=== PATIENT | female | born 1985 | race Caucasian/White ===

== ENCOUNTER 2024-02-07 16:21 | Emergency (ER) | payer OTHER ==
[2024-02-07 16:45] VITALS: BP 153/85; PULSE 101; RESP 20; TEMP 98.6
--- NOTE | 2024-02-07 16:51 | ED ---
Lower Extremity Injury HPI - General Source: patient, RN notes reviewed Mode of arrival: wheelchair Limitations: no limitations <Bere Cervantes - Last Filed: 02/07/24 16:50> <Willie Cardenas - Last Filed: 02/08/24 18:09> - General Chief Complaint: Extremity Injury, Lower Stated Complaint: fall Time Seen by Provider: 02/07/24 16:50 - History of Present Illness Initial Comments: Quick note: 38-year-old female presented to the ER with a chief complaint of a fall. Patient states she slipped walking from wet carpet to a hardwood floor. She denies any head injury or loss of consciousness. Denies any dizziness, lightheadedness, chest pain or shortness of breath prior to fall. (Bere Cervantes) 38-year-old female presenting with chief complaint of left knee pain. Patient states that she was cleaning and she stepped from the back carpet onto hard surface. She slipped and landed onto her left knee. States that she has had previous surgery and issues with her left knee. No head injury or loss of consciousness or use of blood thinners. No numbness or tingling. Pain worse with range of motion or weightbearing (Willie Cardenas) - Related Data Previous Rx's Medication Instructions Recorded HYDROcodone/APAP 7.5-325MG [[place] 1 tab PO Q6HR PRN 3 Days #12 tab 02/07/24 7.5-325] Allergies Allergy/AdvReac Type Severity Reaction Status Date / Time No Known Allergies Allergy Verified 02/07/24 16:45 Review of Systems ROS Other: All systems not noted in ROS Statement are negative. <Bree Cervantes - Last Filed: 02/07/24 16:50> ROS Other: All systems not noted in ROS Statement are negative. <Willie Cardenas - Last Filed: 02/08/24 18:09> ROS Statement: Those systems with pertinent positive or pertinent negative responses have been documented in the HPI. Past Medical History Past Medical History: Diabetes Mellitus Additional Past Medical History / Comment(s): bacterial Meningitis when she was an . History of Any Multi-Drug Resistant Organisms: None Reported Past Surgical History: Orthopedic Surgery, Tonsillectomy Additional Past Surgical History / Comment(s): left knee Past Psychological History: No Psychological Hx Reported Smoking Status: Never smoker Past Alcohol Use History: None Reported Past Drug Use History: None Reported <Bere Cervantes - Last Filed: 02/07/24 16:50> General Exam Limitations: no limitations <Bere Cervantes - Last Filed: 02/07/24 16:50> Limitations: no limitations General appearance: alert, in no apparent distress Head exam: Present: atraumatic, normocephalic Eye exam: Present: normal appearance, EOMI Neck exam: Present: normal inspection. Absent: meningismus Respiratory exam: Absent: respiratory distress Left Knee exam: Present: tenderness, swelling. Absent: full ROM Neurovascular tendon exam: Present: no vascular compromise Neurological exam: Present: alert, oriented X3 Psychiatric exam: Present: normal affect, normal mood Skin exam: Present: normal color <Willie Cardenas - Last Filed: 02/08/24 18:09> - General Exam Comments Initial Comments: Visual Physical Exam Vital signs reviewed General: Well-appearing, nontoxic, no acute distress. Head: Normocephalic, atraumatic Eyes: PERRLA, EOMI ENT: Airway patent Chest: Nonlabored breathing Skin: No visual rash, normal skin tone Neuro: Alert and oriented 3 Musculoskeletal: No gross abnormalities (Bere Cervantes) Course Vital Signs 02/07/24 16:40 Temperature 98.6 F Pulse Rate 101 H Respiratory 20 Rate Blood Pressure 153/85 O2 Sat by Pulse 95 Oximetry Medical Decision Making <Bere Cervantes - Last Filed: 02/07/24 16:50> <Willie Cardenas - Last Filed: 02/08/24 18:09> - Medical Decision Making I performed the quick note portion of this chart. Electronically signed by Bere Cervantes PA-C (Bere Cervantes) Was pt. sent in by a medical professional or institution ([facility], ENTERPRISE ANALYST, urgent care, hospital, or fdc...) When possible be specific @ -No Did you speak to anyone other than the patient for history (EMS, parent, family, police, friend...)? What history was obtained from this source @ -No Did you review nursing and triage notes (agree or disagree)? Why? @ -I reviewed and agree with nursing and triage notes Were old charts reviewed (outside hosp., previous admission, EMS record, old EKG, old radiological studies, urgent care reports/EKG's, fdc records)? Report findings @ -No old charts were reviewed Differential Diagnosis (chest pain, altered mental status, abdominal pain women, abdominal pain men, vaginal bleeding, weakness, fever, dyspnea, syncope, headache, dizziness, GI bleed, back pain, seizure, CVA, palpatations, mental health, musculoskeletal)? @ -Differential Musculoskeletal Muscular strain, contusion, ligament sprain, fracture, arthritis, septic arthritis, bursitis, cellulitis, muscle spasm, nerve compression, DVT, arterial occlusion, herpes zoster, electrolyte abnormality, tumor.... This is not meant to be in all inclusive list EKG interpreted by me (3pts min.). @ -As above X-rays interpreted by me (1pt min.). @ -X-ray shows moderate to advanced tricompartmental osteoarthrosis, out of proportion to the patient's age. Correlate for any known diagnosis. No acute osseous abnormality seen. Consider orthopedic rheumatology referral CT interpreted by me (1pt min.). @ -None done U/S interpreted by me (1pt. min.). @ -None done What testing was considered but not performed or refused? (CT, X-rays, U/S, labs)? Why? @ -None What meds were considered but not given or refused? Why? @ -None Did you discuss the management of the patient with other professionals (professionals i.e. , PA, ENTERPRISE ANALYST, lab, RT, psych nurse, social work case manager, depot agent, teacher, highway patrol officer, social work case manager)? Give summary @ -No Was smoking cessation discussed for >3mins.? @ -No Was critical care preformed (if so, how long)? @ -No Were there social determinants of health that impacted care today? How? (Homelessness, low income, unemployed, alcoholism, drug addiction, transportation, low edu. Level, literacy, decrease access to med. care, [facility], rehab)? @ -No Was there de-escalation of care discussed even if they declined (Discuss DNR or withdrawal of care, Hospice)? DNR status @ -No What co-morbidities impacted this encounter? (DM, HTN, Smoking, COPD, CAD, Cancer, CVA, ARF, Chemo, Hep., AIDS, mental health diagnosis, sleep apnea, morbid obesity)? @ -None Was patient admitted / discharged? Hospital course, mention meds given and route, prescriptions, significant lab abnormalities, going to OR and other pertinent info. @ -38-year-old female presenting chief complaint of left knee pain after falling onto the knee today. History of previous surgeries and issues with this knee. X-ray negative for fracture or dislocation, however there are degenerative changes out of proportion to the patient's age. Patient is provided with crutches and will follow-up with orthopedics, referral is provided. Discharged home. Follow-up with PCP. Report back to ER with any new or worsening symptoms. Discussed return parameters and answered all questions. Patient conveyed verbal understanding and agreed to the plan. I discussed this case in detail with my attending Dr. Ibarra Undiagnosed new problem with uncertain prognosis? @ -No Drug Therapy requiring intensive monitoring for toxicity (Heparin, Nitro, Insulin, Cardizem)? @ -No Were any procedures done? @ -No Diagnosis/symptom? @ -Knee sprain Acute, or Chronic, or Acute on Chronic? @ -Acute Uncomplicated (without systemic symptoms) or Complicated (systemic symptoms)? @ -Uncomplicated Side effects of treatment? @ -No Exacerbation, Progression, or Severe Exacerbation? @ -No Poses a threat to life or bodily function? How? (Chest pain, [place], [place], pneumonia, PE, COPD, DKA, ARF, appy, cholecystitis, CVA, Diverticulitis, Homicidal, Suicidal, threat to staff... and all critical care pts) @ -Low likelihood (Willie Cardenas) Disposition <Bere Cervantes - Last Filed: 02/07/24 16:50> Is patient prescribed a controlled substance at d/c from ED?: Yes When asked, does pt state using other controlled substances?: No If prescribed controlled substance>3 days was MAPS reviewed?: Prescribed <3 Days If opioid is for acute pain is fill amount 7 days or less?: Yes Time of Disposition: 17:47 <Willie Cardenas - Last Filed: 02/08/24 18:09> Clinical Impression: Knee sprain Disposition: HOME SELF-CARE Condition: Fair Instructions (If sedation given, give patient instructions): Knee Sprain (ED) Additional Instructions: Follow up with orthopedics. Report back to ER with any new or worsening symptoms. Rest, ice, compress, elevate the knee. Prescriptions: HYDROcodone/APAP 7.5-325MG [[place] 7.5-325] 1 tab PO Q6HR PRN 3 Days #12 tab PRN Reason: Pain Referrals: Lakshmi Cochran DO [Primary Care Provider] - 1-2 days Brian Townsend DO [Doctor of Osteopathic Medicine] - 1-2 days
[2024-02-07] MEDS: MORPHINE SULFATE 2 MG/ML SYRINGE IM STA (17:11)
[2024-02-07] MEDS: KETOROLAC 15 MG/ML 1 ML VIAL IM STA (17:12)
--- NOTE | 2024-02-07 17:40 | XR ---
EXAMINATION TYPE: XR knee complete LT DATE OF EXAM: 02/07/2024 COMPARISON: None HISTORY: 38-year-old female left knee pain after fall injury TECHNIQUE: 3 views FINDINGS: There is moderate to advanced tricompartmental osteoarthrosis with prominent marginal spurring and pr ominent irregularity of the articular surfaces. Small knee joint effusion. Extensor mechanism appears intact. IMPRESSION: Moderate to advanced tricompartmental osteoarthrosis, out of proportion to the patient's age. Correla te for any known diagnosis. No acute osseous abnormality seen. Consider orthopedic or rheumatology re ferral.
[2024-02-07] MEDS: ACET/COD 300 MG/30 MG STARTER PACK 6 TAB BTL PO STA (18:27)
== END 2024-02-07 18:48 | disposition home or self-care (01) ==
LOC: EC 16:21
DX: S83.92XA Sprain of unspecified site of left knee, initial encounter (principal); M17.12 Unilateral primary osteoarthritis, left knee; W01.0XXA Fall on same level from slipping, tripping and stumbling without subsequent striking against object, initial encounter
CPT/HCPCS: 73562; 99283; 96372; J2270